=== PATIENT | female | born 1995 | race African-American/Black ===

== ENCOUNTER 2017-06-20 02:03 | Emergency (ER) | payer MEDICAID ==
[2017-06-20] MEDS ORDERED: LIDOCAINE 2%/EPI 1:100,000 20 ML VIAL. IJ (03:00)
== END 2017-06-20 04:11 | disposition home or self-care (01) ==
LOC: ER 02:03
DX: L02.411 Cutaneous abscess of right axilla (principal)
CPT/HCPCS: 10060; 99283

== ENCOUNTER 2018-03-01 10:59 | Emergency (ER) | payer MEDICAID ==
[~2018-03-01] VITALS: Ht 162.6 cm; Wt 74.8 kg
[2018-03-01 11:12] VITALS: BP 137/78
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
[2018-03-01] MEDS ORDERED: HYDROmorphone 2 MG/ML VIAL IV ONE ×2 (11:30→12:30)
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
[2018-03-01] MEDS ORDERED: OXYC1TAB15 PO (12:54)
== END 2018-03-01 13:15 | disposition home or self-care (01) ==
LOC: ER 10:59
DX: S42.492A Other displaced fracture of lower end of left humerus, initial encounter for closed fracture (principal); Y08.89XA Assault by other specified means, initial encounter; Y93.89 Activity, other specified; Y92.89 Other specified places as the place of occurrence of the external cause; Y99.8 Other external cause status
CPT/HCPCS: 29105; 73060; 96374; 96375; 99283; J1170